=== PATIENT | female | born 1990 | race Caucasian/White ===

== ENCOUNTER 2017-05-31 00:18 | Emergency (ER) | payer BC ==
[~2017-05-31] VITALS: Ht 165.1 cm; Wt 56.8 kg
[~2017-05-31 00:18] MED LIST: B COMPLEX & B121 TAB PO; BACTRIM DS 8001 TAB PO; BIRTH CONTROL MED; CEFTIN500 MG PO; CEPHALEXIN250 M1 PO; CEPHALEXIN500 M1 PO; DEPO-PROVER150 MG/M1 IM; LORTAB 5/500 501 TAB PO; MACROBID 1100 MG/CAP PO; MULTIPLE VITAMI1 TAB PO; NO HOME MEDICATIONS; NORCO 325 MG-51 TAB PO; PERCOCET 325 MG1 TA2 PO; PERCOCET 500 MG1 TAB PO; PYRIDIUM200 M1 PO; SILVADENE CREAM1 TU TP; ZOFRAN 4MG T4 MG/TAB PO
[2017-05-31 00:22] VITALS: BP 127/86; PULSE 87; TEMP 99
== END 2017-05-31 01:08 | disposition home or self-care (01) ==
LOC: COL.ER 00:18
DX: S90.861A Insect bite (nonvenomous), right foot, initial encounter (principal); W57.XXXA Bitten or stung by nonvenomous insect and other nonvenomous arthropods, initial encounter